=== PATIENT | female | born 1955 | race Caucasian/White ===

== ENCOUNTER → 2017-07-29 | Outpatient (CLI) | payer MEDICARE ==
--- NOTE | 2017-07-29 08:07 | US ---
EXAMINATION TYPE: US abdomen complete DATE OF EXAM: 07/29/2017 COMPARISON: None CLINICAL HISTORY: R94.5 Abnormal results of liver function studies. Abnormal labs. No pain. Ileosto my bag. Patient states having a history of gall stones with removal of stones, but doesn't remember if gall bladder was removed EXAM MEASUREMENTS: Liver Length: 16.0 cm CBD: 0.6 cm CHD: 0.5 cm Spleen: 9.7 cm Right Kidney: 8.7 x 4.3 x 2.9 cm Left Kidney: 9.1 x 3.9 x 3.6 cm Pancreas: wnl Liver: wnl Gallbladder: Not seen Evidence for sonographic Gomez's sign: neg CBD: wnl CHD: wnl Spleen: wnl Right Kidney: wnl Left Kidney: Lateral cystic appearing lesion seen, mid/lower pole = 1.8 x 1.4 x 1.4 cm Upper IVC: wnl Abd Aorta: no AAA seen The visualized liver is homogenous. The intrahepatic portion of the IVC and visualized abdominal aor ta are within normal limits. Gallbladder is not visualized and presumed surgically absent. Common bi le duct is unremarkable. The visualized portions of the pancreas are homogenous. The spleen is unre markable. Kidneys are symmetric and free of hydronephrosis. No suspicious renal lesions are seen. T echnologist cid elongated 1.8 cm oval anechoic lesion with increased through transmission felt to r eflect simple cyst upper to mid pole level left kidney. IMPRESSION: No worrisome intrahepatic mass or intrahepatic ductal dilatation is seen.
== END | disposition home or self-care (01) ==
LOC: RADUSWWP 06:52
PROVIDERS: ATTEND Internal Medicine
DX: R94.5 Abnormal results of liver function studies (principal)
CPT/HCPCS: 76700

== ENCOUNTER → 2017-09-14 | Outpatient (CLI) | payer MEDICARE ==
--- NOTE | 2017-09-14 14:55 | XR ---
EXAMINATION TYPE: XR chest 2V DATE OF EXAM: 09/14/2017 COMPARISON: 09/07/2015 TECHNIQUE: PA and lateral views submitted. HISTORY: Chronic cough FINDINGS: The lungs are clear and there is no pneumothorax, pleural effusion, or focal pneumonia. Hyperinflat ion suggests COPD. Degenerative change of the spine. No overt failure. IMPRESSION: 1. No acute process. Correlate for COPD.
== END | disposition home or self-care (01) ==
LOC: RADXRMAIN 14:20
PROVIDERS: ATTEND Internal Medicine
DX: J20.9 Acute bronchitis, unspecified (principal)
CPT/HCPCS: 71046

== ENCOUNTER → 2017-09-24 | Outpatient (CLI) | payer MEDICARE ==
--- NOTE | 2017-09-24 14:21 | CT ---
EXAMINATION TYPE: CT chest wo con DATE OF EXAM: 09/24/2017 COMPARISON: NONE HISTORY: COPD with Acute Exacerbation CT DLP: 211.1 mGycm High-resolution noncontrast CT of the chest was performed with the patient in the prone and supine po sitions. Lung and mediastinal window settings are submitted. The lungs appear to be well-aerated. I do not see evidence for fibrotic change. There is no eviden ce for bronchiectasis, groundglass infiltrate or fibrosis. Pleural-based nodule left posterior sulcus measures 5.9 mm. No additional nodules identified with certainty. Hyperinflation compatible with BRIGADIER D. No pleural effusion is identified. I do not see evidence for hilar or mediastinal mass or adenopa thy. IMPRESSION: 1. COPD. 2. Pulmonary nodule left lower lobe. Follow-up in 3 months is advised.
== END | disposition home or self-care (01) ==
LOC: RADCTMAIN 13:38
PROVIDERS: ATTEND Family Medicine
DX: J44.1 Chronic obstructive pulmonary disease with (acute) exacerbation (principal); R91.1 Solitary pulmonary nodule
CPT/HCPCS: 71250

== ENCOUNTER → 2017-10-05 | Outpatient (CLI) | payer MEDICARE ==
--- NOTE | 2017-10-06 18:32 | ECHOF ---
Referral Reason:I50.31 Acute Diastolic (Congestive) Heart Failure MEASUREMENTS -------- HEIGHT: 154.9 cm WEIGHT: 47.2 kg BP: 116/73 RVIDd: 2.7 cm (< 3.3) IVSd: 1.0 cm (0.6 - 1.1) LVIDd: 3.7 cm (3.9 - 5.3) LVPWd: 1.0 cm (0.6 - 1.1) IVSs: 1.1 cm LVIDs: 2.9 cm LVPWs: 1.4 cm LA Diam: 2.3 cm (2.7 - 3.8) LAESV Index (A-L): 8.49 ml/m Ao Diam: 2.6 cm (2.0 - 3.7) AV Cusp: 1.7 cm (1.5 - 2.6) MV EXCURSION: 16.638 mm (> 18.000) MV EF SLOPE: 93 mm/s (70 - 150) EPSS: 0.6 cm MV E Nilay: 0.58 m/s MV DecT: 339 ms MV A Nilay: 0.76 m/s MV E/A Ratio: 0.77 FINDINGS -------- Sinus rhythm. This was a technically adequate study. The left ventricular size is normal. Left ventricular wall thickness is normal. Overall left vent ricular systolic function is normal with, an EF between 55 - 60 %. The right ventricle is normal in size. Normal LA size by volume 22+/-6 ml/m2. The right atrium is normal in size. The aortic valve is trileaflet and appears structurally normal. The mitral valve is normal. No regurgitation noted There is no pulmonic regurgitation present. The aortic root size is normal. Normal inferior vena cava with normal inspiratory collapse consistent with estimated right atrial pre ssure of 5 mmHg. There is no pericardial effusion. CONCLUSIONS -------- 1. Sinus rhythm. 2. This was a technically adequate study. 3. The left ventricular size is normal. 4. Left ventricular wall thickness is normal. 5. Overall left ventricular systolic function is normal with, an EF between 55 - 60 %. 6. The right ventricle is normal in size. 7. Normal LA size by volume 22+/-6 ml/m2. 8. The right atrium is normal in size. 9. The aortic valve is trileaflet and appears structurally normal. 10. The mitral valve is normal. 11. No regurgitation noted 12. There is no pulmonic regurgitation present. 13. The aortic root size is normal. 14. Normal inferior vena cava with normal inspiratory collapse consistent with estimated right atrial pressure of 5 mmHg. 15. There is no pericardial effusion. JEWELRY MECHANIC: Lynnette Cedillo RDCS
== END | disposition home or self-care (01) ==
LOC: RADECHMAIN 15:31
PROVIDERS: ATTEND Family Medicine
DX: I50.31 Acute diastolic (congestive) heart failure (principal)
CPT/HCPCS: 93306

== ENCOUNTER → 2017-10-22 | Outpatient (CLI) | payer MEDICARE ==
--- NOTE | 2017-10-23 10:16 | FL ---
EXAMINATION: Cervical and Thoracic Esophagram DATE OF EXAM: 10/22/2017 CLINICAL INDICATION: 61-year-old female with dysphagia, sensation of food and liquids getting stuck a t the upper to mid sternal level for the past year. Patient with history of Crohn's and prior colecto my and ileostomy. COMPARISON: None Total Fluoroscopy Time: 1 minute 27 seconds Total images: 32 FINDINGS: The swallowing mechanism is normal. There is thickening of the cricopharyngeus muscle impressing on t he upper cervical esophagus at the C5 level. Otherwise, cervical and thoracic portions have a normal course and caliber. Moderate tertiary perista ltic contractions are demonstrated with blunted secondary stripping waves. This results in prolonged pooling of contrast in the esophagus when the patient is prone or supine. The mucosa is normal and no persistent filling defect is encountered. No hiatal hernia is present. Gastroesophageal reflux could not be elicited with Valsalva or positiona l maneuvers. IMPRESSION: 1. Hypertrophy versus spasm of the cricopharyngeus muscle along the upper cervical esophagus. 2. Blunted secondary stripping waves and moderate tertiary peristalsis allowing for prolonged pooling of contrast in the esophagus when the patient is prone or supine. Findings suggest early presbyesoph jolanta. 3. No stricture, mucosal lesion, or hiatal hernia.
== END | disposition home or self-care (01) ==
LOC: RADFLMAIN 10:55
PROVIDERS: ATTEND Internal Medicine
DX: R13.10 Dysphagia, unspecified (principal)
CPT/HCPCS: 74220

== ENCOUNTER → 2018-02-23 | Outpatient (CLI) | payer MEDICARE ==
--- NOTE | 2018-02-23 17:14 | BD ---
EXAMINATION TYPE: Axial Bone Density DATE OF EXAM: 02/23/2018 COMPARISON: NONE CLINICAL HISTORY: 62 YR OLD FEMALE.....ICD-10 CODE: Z13.820 SCREENING FOR OSTEOPOROSIS Height: 60.5 Weight: 110 FRAX RISK QUESTIONS: Glucocorticoids (More than 3mos): YES, FOR COPD (Ex: prednisone, prednisolone, methylprednisolone, dexamethasone, and hydrocortisone). History of Fracture in Adulthood: YES Secondary Osteoporosis: YES 2. Hyperthyroidism: YES, BUT IT HAS BEEN KILLED OFF Current Tobacco Use: YES RISK FACTORS HISTORY OF: History of Wrist Fracture: LT WRIST < 50 YRS OLD Family History of Osteoporosis: YES, HER MOTHER Active: YES Diet low in dairy products/other sources of calcium: YES, A LITTLE LOW Postmenopausal woman: YES, AT AGE 55 MEDICATIONS: Prednisone or other steroids: YES, FOR COPD, INHALERS How Long: ON AND OFF Thyroid Medications: YES, SYNTHROID How Lon YRS Additional Medications: CLONOPIN, REFLUX MEDS, CALCIUM WITH D, Additional History: COPD, ARTHRITIS EXAM MEASUREMENTS: Bone mineral densitometry was performed using the [employer] System. Bone mineral density as measured about the Lumbar spine is: ----- L1-L4(G/cm2): 0.859 T Score Values are as follows: ----- L1: -3.1 ----- L2: -3.1 ----- L3: -2.5 ----- L4: -2.3 ----- L1-L4: -2.7 Bone mineral density FIRST BONE DENSITY AT [facility] Bone mineral density about the R hip (g/cm2): 0.723 Bone mineral density about the L hip (g/cm2): 0.680 T Score values are as follows: -----R Neck: -2.2 -----L Neck: -2.4 -----R Total: -2.3 -----L Total: -2.6 Bone mineral density FIRST BONE DENSITY AT [facility] FRAX%s: THERE IS A 18.7% CHANCE OF A MAJOR OSTEOPOROTIC FX AND A 5.8% FOR HIP FX.....PROBABILITY OF FX IN 10 YRS TIME IMPRESSION: Osteoporosis (T Score less than -2.5). There is increased fracture risk and therapy is usually indicated based on age. Re-Screen 1-2 years. NOTE: T-SCORE=SD OF THE YOUNG ADULT MEAN.
== END | disposition home or self-care (01) ==
LOC: RADBDWWP 09:17
PROVIDERS: ATTEND Obstetrics & Gynecology
DX: M81.0 Age-related osteoporosis without current pathological fracture (principal)
CPT/HCPCS: 77080

== ENCOUNTER → 2018-03-03 | Outpatient (CLI) | payer MEDICARE ==
--- NOTE | 2018-03-03 12:51 | CT ---
EXAMINATION TYPE: CT chest w con DATE OF EXAM: 03/03/2018 COMPARISON: Chest CT September 24, 2017 HISTORY: Lung nodule CT DLP: 322 mGycm. Automated Exposure Control for Dose Reduction was Utilized. TECHNIQUE: CT scan of the thorax is performed following with IV Contrast, patient injected with 100 mL of Isovue 300. FINDINGS: LUNGS: There is redemonstration of linear scarring posteriorly in the left lung base extending latera lly without discrete nodule. Prior exam was performed under high resolution protocol making evaluatio n for subcentimeter nodularity suboptimal. Some dependent atelectasis in the right lung base medially is present. There is no suspicious greater than 4 mm parenchymal nodule or mass identified bilateral ly. There is mild right apical bleb formation noted. No suspicious consolidation or groundglass opaci ty is seen. No pleural effusion or pneumothorax is noted. MEDIASTINUM: There are no greater than 1 cm hilar or mediastinal lymph nodes. No cardiomegaly or pe ricardial effusion is seen. Coronary artery calcification is present which is noted marker for greenwood ry artery disease. OTHER: Cholecystectomy clips are identified. There is simple appearing 1.6 cm cyst laterally mid pole level left kidney axial image 68. Mild multilevel spurring in thoracic spine is present. IMPRESSION: No suspicious nodules or masses. No acute pulmonary process is evident.
== END | disposition home or self-care (01) ==
LOC: RADCTMAIN 02-24 15:31
PROVIDERS: ATTEND Internal Medicine Critical Care Medicine
DX: R91.1 Solitary pulmonary nodule (principal)
CPT/HCPCS: 71260; Q9967

== ENCOUNTER → 2019-07-01 | Outpatient (CLI) | payer MEDICARE ==
--- NOTE | 2019-07-05 07:51 | MM ---
Reason for exam: screening (asymptomatic). Last mammogram was performed 2 years and 9 months ago. History: Patient is postmenopausal and is nulliparous. Physical Findings: A clinical breast exam by your physician is recommended on an annual basis and results should be correlated with mammographic findings. MG 3D Screening Mammo W/Cad Bilateral CC and MLO view(s) were taken. Prior study comparison: October 14, 2016, mammogram. October 06, 2016, mammogram. August 09, 2015, mammogram. The breast tissue is heterogeneously dense. This may lower the sensitivity of mammography. No significant changes when compared with prior studies. ASSESSMENT: Benign, BI-RAD 2 RECOMMENDATION: Routine screening mammogram of both breasts in 1 year.
== END | disposition home or self-care (01) ==
LOC: RADMAMWWP 15:02
PROVIDERS: ATTEND Obstetrics & Gynecology
DX: Z12.31 Encounter for screening mammogram for malignant neoplasm of breast (principal)
CPT/HCPCS: 77063; 77067

== ENCOUNTER → 2020-04-25 | Outpatient (CLI) | payer MEDICARE ==
[2020-04-25 16:13] LABS: HCT 47.4 % (34.0-46.0); MCH 31.2 pg (25.0-35.0); MCHC 31.7 g/dL (31.0-37.0); MCV 98.3 fL (80.0-100.0); Mean Platelet Volume 6.8; Platelet Count 266 k/uL (150-450); RBC 4.82 m/uL (3.80-5.40); RDW 12.5 % (11.5-15.5); WBC 12.5 k/uL (3.8-10.6)
[2020-04-25 16:59] LABS: Appearance,Urine Clear (Clear); Bacteria,Urine Rare /hpf; Bilirubin,Urine Negative (Negative); Blood,Urine Trace (Negative); Color,Urine Colorless; Glucose,Urine (UA) Negative (Negative); Ketones,Urine Negative (Negative); Leukocyte Esterase,Urine Negative (Negative); Mucus,Urine Rare /hpf; Nitrite,Urine Negative (Negative); Protein,Urine Negative (Negative); RBC,Urine <1 /hpf (0-5); Specific Gravity,Urine 1.003 (1.001-1.035); Urobilinogen,Urine <2.0 mg/dL (<2.0); WBC,Urine <1 /hpf (0-5)
[2020-04-26 02:21] LABS: Erythrocyte Sedimentation Rate 27 mm/Hr (0-30)
--- NOTE | 2020-04-26 09:25 | XR ---
EXAMINATION TYPE: XR chest 2V DATE OF EXAM: 04/25/2020 COMPARISON: 09/14/2017 TECHNIQUE: PA and lateral views submitted. HISTORY: COPD FINDINGS: The lungs are clear and there is no pneumothorax, pleural effusion, or focal pneumonia. Hyperinflat ion compatible COPD. Heart size normal. No overt failure. Hypertrophic and degenerative changes of th e spine. IMPRESSION: 1. No acute process. COPD.
== END | disposition home or self-care (01) ==
LOC: LABWHC1 15:18
PROVIDERS: ATTEND Internal Medicine
DX: J44.9 Chronic obstructive pulmonary disease, unspecified (principal); D72.829 Elevated white blood cell count, unspecified
CPT/HCPCS: 36415; 71046; 81001; 85027; 85652

== ENCOUNTER → 2020-09-10 | Outpatient (CLI) | payer MEDICARE ==
--- NOTE | 2020-09-10 17:09 | BD ---
EXAMINATION TYPE: Axial Bone Density DATE OF EXAM: 09/10/2020 COMPARISON: 02/23/2018 CLINICAL HISTORY: Postmenopausal screening Height: 5 FT 1 IN Weight: 114 FRAX RISK QUESTIONS: Alcohol (3 or more units per day): NO Family History (Parent hip fracture): NO Glucocorticoids (More than 3mos): LONG AGO NONE FOR A LONG TIME (Ex: prednisone, prednisolone, methylprednisolone, dexamethasone, and hydrocortisone). History of Fracture in Adulthood: YES Secondary Osteoporosis: 1. Type 1 Diabetes: NO 2. Hyperthyroidism: NO 3. Menopause before 45: BECAUSE OF HYPERTHYROIDISM 4. Malnutrition: NO 5. Chronic liver disease: NO Rheumatoid Arthritis: NO Current Tobacco Use: YES RISK FACTORS HISTORY OF: History of Wrist Fracture: LEFT WRIST When: 30 YEARS AGO Surgery to Spine/Hip(right/left)/Wrist (right/left): RT WRIST NERVE When: 2019 Family History of Osteoporosis: YES Active: YES Diet low in dairy products/other sources of calcium: NO Postmenopausal woman: AGE 56 Take estrogen and/or progesterone medications: NONE Lost more than 2 inches in height since high school: NO MEDICATIONS: Thyroid Medications: YES Which medication: SYNTHROID How Long: APPROX 25 YEARS Additional Medications: SYNTHROID, REGLANE, EVISTA,CODEINE SULFATE,PEPCID, Additional History: EXAM MEASUREMENTS: Bone mineral densitometry was performed using the [employer] System. Bone mineral density as measured about the Lumbar spine is: ----- L1-L4(G/cm2): 0.824 T Score Values are as follows: ----- L2: -3.4 ----- L3: -3.0 ----- L4: -2.4 ----- L1-L4: -3.0 Bone mineral density has: DECREASED -4.4 % since study of: 2017 Bone mineral density about the R hip (g/cm2): 0.727 Bone mineral density about the L hip (g/cm2): 0.697 T Score values are as follows: -----R Neck: -2.2 -----L Neck: -2.5 -----R Total: -2.3 -----L Total: -2.6 Bone mineral density has: DECREASED -0.6 % since study of: 2017 IMPRESSION: Osteoporosis (T Score less than -2.5). There is increased fracture risk and therapy is usually indicated based on age. Re-Screen 1-2 years. NOTE: T-SCORE=SD OF THE YOUNG ADULT MEAN.
--- NOTE | 2020-09-12 08:47 | MM ---
Reason for exam: screening (asymptomatic). Last mammogram was performed 1 year and 2 months ago. History: Patient is postmenopausal and is nulliparous. Physical Findings: A clinical breast exam by your physician is recommended on an annual basis and results should be correlated with mammographic findings. MG 3D Screening Mammo W/Cad Bilateral CC and MLO view(s) were taken. Prior study comparison: July 01, 2019, bilateral MG 3d screening mammo w/cad. There are scattered fibroglandular densities. No significant changes when compared with prior studies. ASSESSMENT: Benign, BI-RAD 2 RECOMMENDATION: Routine screening mammogram of both breasts in 1 year.
== END | disposition home or self-care (01) ==
LOC: RADMAMWWP 15:18
PROVIDERS: ATTEND Obstetrics & Gynecology
DX: Z12.31 Encounter for screening mammogram for malignant neoplasm of breast (principal); M81.0 Age-related osteoporosis without current pathological fracture
CPT/HCPCS: 77063; 77067; 77080

== ENCOUNTER → 2020-11-23 | Outpatient (CLI) | payer MEDICARE ==
[~2020-11-23] MED LIST: DENOSUMAB 60 MG/ML 1 ML SYRINGE SQ NR
[2020-11-23 14:17] VITALS: BP 106/74; PULSE 98; RESP 16; TEMP 98.1
== END ==
LOC: PROCWHC3 13:56
PROVIDERS: ATTEND Internal Medicine
DX: M81.0 Age-related osteoporosis without current pathological fracture (principal)
CPT/HCPCS: 96372; J0897

== ENCOUNTER 2020-12-23 18:24 | Emergency (ER) | payer MEDICARE ==
[2020-12-23] MEDS ORDERED: DIPH,PERTUS(ACELL)TETVAC-LF 0.5 ML VIAL IM ONE (18:55)
[2020-12-23] MEDS ORDERED: LIDOCAINE 1% INJ 10MG/ML (20 ML MDV) SQ ONE (18:55)
[2020-12-23 19:01] VITALS: BP 135/76; PULSE 89; RESP 18; TEMP 98.2
--- NOTE | 2020-12-23 19:01 | ED ---
General Adult HPI - General Chief complaint: Wound/Laceration Stated complaint: Fall/chin lac/6 hrs ago Time Seen by Provider: 12/23/20 18:38 Source: patient, RN notes reviewed Mode of arrival: ambulatory Limitations: no limitations - History of Present Illness Initial comments: 65-year-old female with a past medical history of GERD, Crohn's currently not on immunosuppressants presents for laceration of the chin. Patient reports she was walking her driveway. She reports there is slight elevation to the sidewalk and she tripped and fell hitting her chin on the ground. This happened about 7 hours prior to arrival. Patient states she couldn't get it to stop bleeding so presented to the emergency room. Patient states she cannot see how deep it is. She is not up-to-date on tetanus. Patient denies headache or any other injuries. Denies loss of consciousness. Denies blood thinners.Patient has no other complaints at this time including shortness of breath, chest pain, abdominal pain, nausea or vomiting, headache, or visual changes. - Related Data Home Medications Medication Instructions Recorded Confirmed Biotin 5 mg PO DAILY 09/03/15 11/23/20 Calcium Carbonate/Vitamin D3 1 tab PO DAILY 09/03/15 11/23/20 [Calcium 600-Vit D3 400 Tablet] Codeine Sulfate 60 mg PO BID PRN 09/03/15 11/23/20 Cyanocobalamin [Vitamin B-12 1,000 mcg SQ TU 09/03/15 11/23/20 Injection] Estradiol/Norethindrone Acet 1 tab PO DAILY 09/03/15 11/23/20 [Lopreeza 1 mg-0.5 mg Tablet] Levothyroxine Sodium [Synthroid] 112 mcg PO DAILY 09/03/15 11/23/20 Ondansetron [Zofran] 4 mg PO Q12HR PRN 09/03/15 11/23/20 Vitamin E (Dl,Tocopheryl Acet) 400 unit PO DAILY 09/03/15 11/23/20 [Vitamin E] Previous Rx's Medication Instructions Recorded Ranitidine HCl [Zantac] 150 mg PO BID #60 tab 09/06/15 Glucerna 1.2 Shiv 237 ml PO ACHS #18 can 09/07/15 Glucerna Shake 1 can PO BID-W/MEALS #18 can 09/07/15 Allergies Allergy/AdvReac Type Severity Reaction Status Date / Time Penicillins Allergy Unknown Verified 11/23/20 14:06 povidone-iodine Allergy Unknown Verified 11/23/20 14:06 [From Betadine] soap [From Betadine] Allergy Unknown Verified 11/23/20 14:06 Review of Systems ROS Statement: Those systems with pertinent positive or pertinent negative responses have been documented in the HPI. ROS Other: All systems not noted in ROS Statement are negative. Past Medical History Past Medical History: GERD/Reflux, Osteoarthritis (OA), Thyroid Disorder Additional Past Medical History / Comment(s): 09-03-15 LEUKOCYTOSIS,ABD PAIN, N/V,ARF,HEPATITIS. 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 History of Any Multi-Drug Resistant Organisms: None Reported Past Surgical History: Bowel Resection, Tonsillectomy Additional Past Surgical History / Comment(s): SEVERAL ileostomy SX, RECTUM REMOVED/AREA SUTURED/CLOSED, 2 NASL SX POLY REMOVED(BENIGN) AND DEVIATED SEPTUM REPAIRED. ILEOSTOMY LEFT SIDE. Additional Past Anesthesia/Blood Transfusion Reaction / Comment(s): WITH TONSIL SX WOKE EARLY DURING SX AND AFTER ANOTHER SX WHERE SHE HAD A SPINAL HAD SOME REACTION TO IT Past Psychological History: No Psychological Hx Reported Smoking Status: Current every day smoker Past Alcohol Use History: None Reported Past Drug Use History: None Reported - Past Family History Father Family Medical History: Myocardial Infarction (OR) Additional Family Medical History / Comment(s): FATHER AHD OR AT AGE 51, HAD AIDC, DADS BROTHER AGE 50 FROM OR,AND ONE OF PTS COUSINS AGE 40 FROM [place] Mother Family Medical History: Cancer, Osteoarthritis (OA), Rheumatoid Arthritis (RA) Additional Family Medical History / Comment(s): BONE CANCER General Exam Limitations: no limitations General appearance: alert, in no apparent distress Head exam: Present: atraumatic, normocephalic, normal inspection Eye exam: Present: normal appearance, PERRL, EOMI. Absent: scleral icterus, conjunctival injection, periorbital swelling ENT exam: Present: normal exam, normal oropharynx, mucous membranes moist, other (Patient has a 2 cm laceration noted to the vertex of the chin) Neck exam: Present: normal inspection, full ROM. Absent: tenderness, meningismus, lymphadenopathy Respiratory exam: Present: normal lung sounds bilaterally. Absent: respiratory distress, wheezes, rales, rhonchi, stridor Cardiovascular Exam: Present: regular rate, normal rhythm, normal heart sounds. Absent: systolic murmur, diastolic murmur, rubs, gallop, clicks GI/Abdominal exam: Present: soft, normal bowel sounds. Absent: distended, tenderness, guarding, rebound, rigid Course Vital Signs 12/23/20 12/23/20 18:29 19:00 Temperature 97.7 F 98.2 F Pulse Rate 91 89 Respiratory 16 18 Rate Blood Pressure 107/61 135/76 O2 Sat by Pulse 99 95 Oximetry Procedures - Laceration Laceration #1 Consent Obtained: verbal consent Indication: laceration Site: face Size (cm): 1 Description: linear Depth: simple, single layer Anesthetic Used: lidocaine 1% Anesthesia Technique: local infiltration Amount (mls): 2 Pre-repair: wound explored, irrigated extensively Type of Sutures: nylon Size of Sutures: 5-0 Number of Sutures: 2 Technique: simple, interrupted Patient Tolerated Procedure: well, no complications Medical Decision Making - Medical Decision Making Laceration repaired. Patient will be discharged home to follow up with primary care. She'll return here for any worsening symptoms. Discussed care parameters and return precautions. Disposition Clinical Impression: Laceration Disposition: HOME SELF-CARE Condition: Good Instructions (If sedation given, give patient instructions): Care For Your Stitches (ED), Laceration (ED) Additional Instructions: Keep area clean with gentle soap and water. Apply antibiotic ointment twice daily. Please follow up with primary care in 1-2 days. Return to the ER for any worsening symptoms. Return in 5 days for suture removal. Is patient prescribed a controlled substance at d/c from ED?: No Referrals: Medina Booth MD [Primary Care Provider] - 1-2 days Time of Disposition: 19:15
== END 2020-12-23 19:32 | disposition home or self-care (01) ==
LOC: EC 18:24
DX: S01.81XA Laceration without foreign body of other part of head, initial encounter (principal); M19.90 Unspecified osteoarthritis, unspecified site; F17.200 Nicotine dependence, unspecified, uncomplicated; E07.9 Disorder of thyroid, unspecified; Z90.09 Acquired absence of other part of head and neck; W01.0XXA Fall on same level from slipping, tripping and stumbling without subsequent striking against object, initial encounter; Y93.01 Activity, walking, marching and hiking; Z23 Encounter for immunization
CPT/HCPCS: 90715; 99283; 12011; 90471; 96372; J2001

== ENCOUNTER → 2021-12-16 | Outpatient (CLI) | payer MEDICARE ==
[2021-12-16 11:33] VITALS: BP 119/79; PULSE 98; RESP 15; TEMP 97.4
== END ==
LOC: PROCWHC3 10:57
PROVIDERS: ATTEND Internal Medicine
DX: M81.0 Age-related osteoporosis without current pathological fracture (principal); Z88.0 Allergy status to penicillin; Z88.8 Allergy status to other drugs, medicaments and biological substances; F17.200 Nicotine dependence, unspecified, uncomplicated
CPT/HCPCS: 96372; J0897

== ENCOUNTER → 2022-01-23 | Outpatient (CLI) | payer MEDICARE ==
--- NOTE | 2022-01-24 19:52 | CTL ---
EXAMINATION TYPE: CT Low Dose Lung DATE OF EXAM ORDERED: 01/23/2022 HISTORY: History Nicotine dependence. Lung cancer screening CT DLP: 46.[address] CTDI: 1.2 mGy Automated exposure control for dose reduction was used. SCREENING VISIT: Baseline COMPARISON: CT dated 03/03/2018 TECHNIQUE: Low dose computed tomography scan was performed through the chest at 1 mm thick sections a nd reconstructed images in multiple planes at 1 mm and [address] DIAGNOSTIC QUALITY: Satisfactory FINDINGS: LUNG NODULES: None. LUNGS: COPD: Severity: Mild Fibrosis: Severity: None Lymph nodes: No pathologically enlarged lymph nodes. Other findings: Left basal linear pulmonary atelectasis. Scattered segments of bronchial impaction ma inly in the lower lobes. RIGHT PLEURAL SPACE: Effusion: None Calcification: None Thickening: None Pneumothorax: None LEFT PLEURAL SPACE: Effusion: None Calcification: None Thickening: None Pneumothorax: None HEART: Heart Size: Normal Coronary Calcification: Moderate Pericardial Effusion: None OTHER FINDINGS: Upper abdomen: None Bony thorax: No gross aggressive bone lesion. Supraclavicular region: None Other: Minimal arterial atherosclerotic calcifications. IMPRESSION: No definite lung nodule or suspicious lesion. COPD changes. Other findings as described francine harrison. CT LUNG RAD AND CT CHEST RECOMMENDATION: Lung-Rad 1 Negative: Continue annual screening with LDCT in 12 months. S Modifier (other clinically significant findings): None
== END | disposition home or self-care (01) ==
LOC: RADCTMAIN 11:54
PROVIDERS: ATTEND Internal Medicine
DX: Z12.2 Encounter for screening for malignant neoplasm of respiratory organs (principal); Z87.891 Personal history of nicotine dependence
CPT/HCPCS: 71271

== ENCOUNTER → 2022-04-02 | Outpatient (CLI) | payer MEDICARE ==
--- NOTE | 2022-04-02 10:36 | CA ---
Exercise Stress Test Report Name: Porsche Padilla Exam Date: 04/02/2022 09:43 Exam Location: [facility] Stress Ht (in): 61 Wt (lb): 99 BSA: 1.40 Ordering Phys: Medina Reyes MD Referring Phys: MEDINA REYES,, Technologist: Arya Jiménez Age: 66 Gender: F : 1955 Procedure CPT: Indications: I25.10 ATHSCL HEART DISEASE OF [place] CORONARY ART ICD-10 Codes: Patient History: Medications: SEE LIST Meds past 24 hrs: Pretest Chest Pain: STRESS TEST Ish Protocol Exercise Duration (min:sec): 08:[address] Depressions (mm): Angina Score: Shah Score: Resting HR (bpm): 106 Peak HR (bpm): 165 Resting BP (mmHg): 107 / 80 Peak BP (mmHg): 162 / 92 MPHR: 156 Target HR: 133 % MPHR: 106 METS: 10.3 Total Dose: Peak Dose: Atropine: Double Product: 04710 BP Response: Stress Termination: Reached target heart rate Stress Symptoms: NO SYMPTOMS Stress Summary: ECG ANALYSIS Resting ECG: Stress ECG: CONCLUSIONS Baseline EKG revealed normal sinus rhythm without significant ST-T changes. Patient walked on a standard Ish protocol for 8 minutes and achieved a maximum heart rate of 165 bpm which is available 85% of predicted maximal. He delivered fatigue and shortness of breath. He did not have any angina or arrhythmia. EKG did not reveal any ST segment changes to indicate ischemia. By EKG criteria is a negative stress test with fair x-rays capacity. The nuclear scan results which are more pertinent report by the radiologist Dr. David Arana MD (Electronically Signed) Final Date: 02 April 2022 10:35
--- NOTE | 2022-04-04 11:23 | NM ---
EXAMINATION TYPE: NM stress cardiolite complete DATE OF EXAM: 04/02/2022 COMPARISON: NONE HISTORY: I25.10 ATHSCL HEART DISEASE OF [place] CORONARY ART TECHNIQUE: After the intravenous administration of 9 mCi Tc 99m Sestamibi - Rest images obtained 10 minutes post injection. The patient exercised using a ROCCO protocol and 1 minute prior to peak exe rcise was injected with 24.1 mCi Tc 99m Sestamibi - Stress images obtained 45 minutes post injection. FINDINGS: Targeted heart rate was achieved during performance of the study. Review of stress and rest SPECT ekaterina ges demonstrates no distinct perfusion abnormality. Gated analysis shows normal wall motion with an estimated left ventricular ejection fraction of 80 %. IMPRESSION: No scintigraphic evidence for reversible ischemia
== END | disposition home or self-care (01) ==
LOC: RADNMMAIN 08:01
PROVIDERS: ATTEND Internal Medicine
DX: I25.10 Atherosclerotic heart disease of native coronary artery without angina pectoris (principal)
CPT/HCPCS: 93017; 78452; A9500

== ENCOUNTER → 2022-05-16 | Outpatient (CLI) | payer MEDICARE ==
--- NOTE | 2022-05-19 08:28 | MM ---
Reason for Exam: Screening (asymptomatic). Last mammogram was performed 1 year(s) and 8 month(s) ago. Patient History: Menarche at age 17. Patient has no children. Postmenopausal. Risk Values: Senait 5 year model risk: 1.6%. NCI Lifetime model risk: 6.6%. Prior Study Comparison: 10/14/2016 Screening Mammogram, Unknown. 07/01/2019 Bilateral Screening Mammogram, [facility]. 09/10/2020 Bilateral Screening Mammogram, [facility]. Tissue Density: The breast tissue is heterogeneously dense. This may lower the sensitivity of mammography. Findings: Analyzed By CAD. There is no suspicious group of microcalcifications or new suspicious mass in either breast. Overall Assessment: Benign, BI-RAD 2 Management: Screening Mammogram of both breasts in 1 year. A clinical breast exam by your physician is recommended on an annual basis and results should be correlated with mammographic findings. Electronically signed and approved by: Lukasz Snider M.D. Radiologis
== END | disposition home or self-care (01) ==
LOC: RADMAMWWP 14:58
PROVIDERS: ATTEND Obstetrics & Gynecology
DX: Z12.31 Encounter for screening mammogram for malignant neoplasm of breast (principal); Z78.0 Asymptomatic menopausal state
CPT/HCPCS: 77063; 77067

== ENCOUNTER → 2022-06-24 | Outpatient (CLI) | payer MEDICARE ==
[2022-06-24 11:23] VITALS: BP 111/73; PULSE 101; RESP 16; TEMP 98.3
== END ==
LOC: PROCWHC3 11:00
PROVIDERS: ATTEND Internal Medicine
DX: M81.0 Age-related osteoporosis without current pathological fracture (principal); Z88.0 Allergy status to penicillin; Z91.041 Radiographic dye allergy status; Z91.048 Other nonmedicinal substance allergy status; F17.200 Nicotine dependence, unspecified, uncomplicated
CPT/HCPCS: 96372; J0897

== ENCOUNTER 2022-08-08 15:09 | Emergency (ER) | payer MEDICARE ==
[2022-08-08] MEDS ORDERED: DEXAMETHASONE SOD PHOSPHATE 10 MG/ML 1 ML VIAL IVP STA (15:46)
[2022-08-08] MEDS ORDERED: SODIUM CHLORIDE 0.9% 1,000 ML IV STA (15:46)
[2022-08-08] MEDS ORDERED: MORPHINE SULFATE 4 MG/ML SYRINGE IVP STA (15:47)
[2022-08-08] MEDS ORDERED: LEVOFLOXACIN 750MG-D5W PMX 750 MG in DEXTROSE/WATER 1 150ML.BAG IVPB STA (15:50)
--- NOTE | 2022-08-08 15:58 | ED ---
General Adult HPI - General Chief complaint: Dental/Oral Stated complaint: Mouth infection Time Seen by Provider: 08/08/22 15:35 Source: patient, RN notes reviewed, old records reviewed Mode of arrival: ambulatory Limitations: no limitations - History of Present Illness Initial comments: Patient is a 66-year-old female who presents emergency Department complaining of right-sided dental pain. Recently had a root canal as well as a crown placed the right upper tooth. Has been dealing with pain in the right cheek and right upper tooth for a month. Procedure was approximately one month ago. Called her dentist, who instructed her to come to the emergency department and she has noticed worsening swelling over the right cheek and last few days. Denies any fevers. Denies any difficulty with vision on the right eye. Denies any difficulty with eye movements. Denies any difficulty swallowing or breathing. Denies any tongue swelling or for the mild swelling. Denies any sensation of voice change or throat swelling. Denies any other symptoms including fevers, chest pain, shortness of breath. Does endorse any ear fullness sensation on the right side. Denies any ear pain or skull Pain. Has no other acute complaints at this time. Has been on clindamycin, however patient's dentist request that she come in for a dose of IV antibiotics and for further evaluation of this time. - Related Data Home Medications Medication Instructions Recorded Confirmed Biotin 5 mg PO DAILY 09/03/15 06/24/22 Calcium Carbonate/Vitamin D3 1 tab PO DAILY 09/03/15 06/24/22 [Calcium 600-Vit D3 400 Tablet] Codeine Sulfate 60 mg PO BID PRN 09/03/15 06/24/22 Cyanocobalamin [Vitamin B-12 1,000 mcg SQ TU 09/03/15 06/24/22 Injection] Estradiol/Norethindrone Acet 1 tab PO DAILY 09/03/15 06/24/22 [Lopreeza 1 mg-0.5 mg Tablet] Levothyroxine Sodium [Synthroid] 112 mcg PO DAILY 09/03/15 06/24/22 Ondansetron [Zofran] 4 mg PO Q12HR PRN 09/03/15 06/24/22 Vitamin E (Dl,Tocopheryl Acet) 400 unit PO DAILY 09/03/15 06/24/22 [Vitamin E (400 Iu = 180 mg)] Previous Rx's Medication Instructions Recorded Ranitidine HCl [Zantac] 150 mg PO BID #60 tab 09/06/15 Glucerna 1.2 Shiv 237 ml PO ACHS #18 can 09/07/15 Glucerna Shake 1 can PO BID-W/MEALS #18 can 09/07/15 Levofloxacin [Levaquin] 750 mg PO DAILY 7 Days #7 tab 08/08/22 dexAMETHasone [Decadron] 4 mg PO DAILY 3 Days #3 tablet 08/08/22 Allergies Allergy/AdvReac Type Severity Reaction Status Date / Time Penicillins Allergy Unknown Verified 08/08/22 15:25 povidone-iodine Allergy Unknown Verified 08/08/22 15:25 [From Betadine] soap [From Betadine] Allergy Unknown Verified 08/08/22 15:25 sulfamethoxazole Allergy Rash/Hives Verified 08/08/22 15:25 [From Bactrim] trimethoprim [From Bactrim] Allergy Rash/Hives Verified 08/08/22 15:25 Review of Systems ROS Statement: Those systems with pertinent positive or pertinent negative responses have been documented in the HPI. Review of Systems: CONST: Denies fever EYES: Denies blurry vision ENT: Endorses right cheek pain, gumline pain. C/V: Denies Chest pain RESP: Denies shortness of breath GI: Denies abdominal pain : Denies dysuria SKIN: Denies rash. MSK: Denies joint pain. NEURO: Denies headache ROS Other: All systems not noted in ROS Statement are negative. Past Medical History Past Medical History: GERD/Reflux, Osteoarthritis (OA), Thyroid Disorder Additional Past Medical History / Comment(s): 09-03-15 LEUKOCYTOSIS,ABD PAIN, N/V,ARF,HEPATITIS. 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 History of Any Multi-Drug Resistant Organisms: None Reported Past Surgical History: Bowel Resection, Tonsillectomy Additional Past Surgical History / Comment(s): SEVERAL ileostomy SX, RECTUM REMOVED/AREA SUTURED/CLOSED, 2 NASL SX POLY REMOVED(BENIGN) AND DEVIATED SEPTUM REPAIRED. Additional Past Anesthesia/Blood Transfusion Reaction / Comment(s): WITH TONSIL SX WOKE EARLY DURING SX AND AFTER ANOTHER SX WHERE SHE HAD A SPINAL HAD SOME REACTION TO IT Past Psychological History: No Psychological Hx Reported Smoking Status: Current every day smoker Past Alcohol Use History: Rare Past Drug Use History: None Reported - Past Family History Father Family Medical History: Myocardial Infarction (SC) Additional Family Medical History / Comment(s): FATHER AHD SC AT AGE 51, HAD AIDC, DADS BROTHER AGE 50 FROM [place],AND ONE OF PTS COUSINS AGE 40 FROM [place] Mother Family Medical History: Cancer, Osteoarthritis (OA), Rheumatoid Arthritis (RA) Additional Family Medical History / Comment(s): BONE CANCER General Exam - General Exam Comments Initial Comments: General: Appears in mild distress secondary to pain. HEAD: Normal with no signs of head trauma. EYES: PERRLA, EOMI, conjunctiva normal, no discharge. Pupils are 3 mm and equal bilaterally. ENT: Hearing grossly intact. Full of the mouth is within normal limits. No swelling. Normal tongue motions. No tongue swelling. Posterior oropharynx is within normal limits. Patient's crown appears in intact. Patient does have some right upper gumline tenderness to palpation as well as right cheek tenderness to palpation with suspected induration palpated. No skin changes. No obvious abscess seen. Uvula is midline. No stridor. No lymph node swelling in the neck. No concern for Stephen angina. No mastoid tenderness to palpation. Bilateral tympanic membranes are within acceptable limits. Maybe trace amount of edema behind the right tympanic membrane. RESPIRATORY: Clear breath sounds bilaterally. No wheezes, rales, or rhonchi. C/V: Regular rate and rhythm. S1 and S2 auscultated, no edema, peripheral pulses 2+ and intact throughout ABD: Abd is soft, nontender, nondistended EXT: Normal range of motion, no obvious deformity SKIN: No rashes or lesions observed on exposed skin. NEURO: Alert and oriented 4. Limitations: no limitations Course Vital Signs 08/08/22 08/08/22 15:21 18:30 Temperature 97.9 F 98.0 F Pulse Rate 70 68 Respiratory 20 18 Rate Blood Pressure 113/81 116/76 O2 Sat by Pulse 96 97 Oximetry Medical Decision Making - Medical Decision Making Was pt. sent in by a medical professional or institution (, PA, PAINTING MACHINE OPERATOR, urgent care, hospital, or senior care...) When possible be specific @ -Yes, patient's dentist. Did you speak to anyone other than the patient for history (EMS, parent, family, police, friend...)? What history was obtained from this source @ -No Did you review nursing and triage notes (agree or disagree)? Why? @ -I reviewed and agree with nursing and triage notes Were old charts reviewed (outside hosp., previous admission, EMS record, old EKG, old radiological studies, urgent care reports/EKG's, senior care records)? Report findings @ -No old charts were reviewed Differential Diagnosis (chest pain, altered mental status, abdominal pain women, abdominal pain men, vaginal bleeding, weakness, fever, dyspnea, syncope, headache, dizziness, GI bleed, back pain, seizure, CVA, palpatations, mental health)? @ -Dental abscess, sinusitis, septal cellulitis, infection EKG interpreted by me (3pts min.). @ -None done X-rays interpreted by me (1pt min.). @ -None done CT interpreted by me (1pt min.). @ -CT of the facial bones revealed findings concerning for possible abscess as well as sinusitis. No other findings. U/S interpreted by me (1pt. min.). @ -None done What testing was considered but not performed or refused? (CT, X-rays, U/S, labs)? Why? @ -None What meds were considered but not given or refused? Why? @ -None Did you discuss the management of the patient with other professionals (professionals i.e. , PA, PAINTING MACHINE OPERATOR, lab, RT, psych nurse, clinical social work therapist, commercial litigation associate, teacher, ecological technical officer, family service caseworker)? Give summary @ -No Was smoking cessation discussed for >3mins.? @ -No Was critical care preformed (if so, how long)? @ -No Were there social determinants of health that impacted care today? How? (Homelessness, low income, unemployed, alcoholism, drug addiction, transportation, low edu. Level, literacy, decrease access to med. care, detention, rehab)? @ -No Was there de-escalation of care discussed even if they declined (Discuss DNR or withdrawal of care, Hospice)? DNR status @ -No What co-morbidities impacted this encounter? (DM, HTN, Smoking, COPD, CAD, Cancer, CVA, ARF, Chemo, Hep., AIDS, mental health diagnosis, sleep apnea, morbid obesity)? @ -None Was patient admitted / discharged? Hospital course, mention meds given and route, prescriptions, significant lab abnormalities, going to OR and other pertinent info. @ -Based on the patient's presentation and physical exam, I'm concerned for a dental infection for the patient. Cannot rule out other etiology at this time including possible sinusitis. Infection seems to be getting worse. Does not appear to have Stephen angina, however would like to obtain CT imaging to rule out possible septal or preseptal cellulitis on the right versus sinusitis. Patient was in agreement this plan. She is ALLERGIC to penicillins, as well as sulfa medications. She has already been on clindamycin. Therefore patient will be started and given a dose of levofloxacin here in the department as well as IV morphine and steroids. Patient will be given a 1 L fluid bolus We'll obtain basic labs as well as a CT of the facial bones. Patient was in agreement this plan. Vital signs within limits. There is no concern for Stephen angina at this time based on physical exam. We discussed this with the patient and she was in agreement with this plan. Patient has no neuro symptoms to suggest intracranial process at this time or intracranial extension of the infection. Patient's laboratory studies are remarkable for an elevated hemoglobin of 20.2 which is likely secondary to mild dehydration or possible lab air. Patient has had elevated focal the past. No elevated white blood cell count. Remainder of labs are unremarkable. Facial CT revealed right-sided sinusitis as well as an abscess in the right maxilla consistent with an abscess. I did the patient and discussed the workup with her. I do believe it is safer to be discharged home. She was in agreement this plan. I recommend she finish her dose of clindamycin at home and we will start her on levofloxacin. I wanted to follow up with her dentist next week. She can return if needed. She was in agreement this plan. She'll be placed on oral steroids as well for home. I will provide the patient with a prescription for levofloxacin, Decadron. I instructed the patient to follow up with their PCP in the next 1-3 days. I explained that the patient should return to the emergency department if they experience any worsening symptoms. Strict return precautions were discussed with the patient. The patient expressed understanding of these instructions. I answered all questions that the patient had. The patient was discharged home in good condition with their prescriptions and follow up information. Undiagnosed new problem with uncertain prognosis? @ -No Drug Therapy requiring intensive monitoring for toxicity (Heparin, Nitro, Insulin, Cardizem)? @ -No Were any procedures done? @ -No Diagnosis/symptom? @ -Dental infection Acute, or Chronic, or Acute on Chronic? @ -Acute Uncomplicated (without systemic symptoms) or Complicated (systemic symptoms)? @ -Complicated Side effects of treatment? @ -No Exacerbation, Progression, or Severe Exacerbation? @ -No Poses a threat to life or bodily function? How? (Chest pain, [place], [place], pneumonia, PE, COPD, DKA, ARF, appy, cholecystitis, CVA, Diverticulitis, Homicidal, Suicidal, threat to staff... and all critical care pts) @ -Yes, if it progresses can result in significant morbidity and mortality. Diagnosis/symptom? @ -Sinusitis, right Acute, or Chronic, or Acute on Chronic? @ -Acute Uncomplicated (without systemic symptoms) or Complicated (systemic symptoms)? @ -Uncomplicated Side effects of treatment? @ -none Exacerbation, Progression, or Severe Exacerbation] @ -no Poses a threat to life or bodily function? @ -If untreated, can result in significant morbidity and mortality. - Lab Data Result diagrams: 08/08/22 16:17 08/08/22 16:17 Lab Results 08/08/22 08/08/22 Range/Units 16:17 16:17 WBC 9.7 (3.8-10.6) k/uL RBC 6.28 H (3.80-5.40) m/uL Hgb 20.2 H* (11.4-16.0) gm/dL Hct 60.9 H* (34.0-46.0) % MCV 96.9 (80.0-100.0) fL MCH 32.1 (25.0-35.0) pg MCHC 33.2 (31.0-37.0) g/dL RDW 12.6 (11.5-15.5) % Plt Count 136 L (150-450) k/uL MPV 7.3 Neutrophils % 66 % Lymphocytes % 23 % Monocytes % 7 % Eosinophils % 2 % Basophils % 2 % Neutrophils # 6.4 (1.3-7.7) k/uL Lymphocytes # 2.2 (1.0-4.8) k/uL Monocytes # 0.6 (0-1.0) k/uL Eosinophils # 0.2 (0-0.7) k/uL Basophils # 0.1 (0-0.2) k/uL Sodium 138 (137-145) mmol/L Potassium 4.3 (3.5-5.1) mmol/L Chloride 107 (98-107) mmol/L Carbon Dioxide 23 (22-30) mmol/L Anion Gap 8 mmol/L BUN 16 (7-17) mg/dL Creatinine 0.74 (0.52-1.04) mg/dL Est GFR (CKD-EPI)AfAm >90 (>60 ml/min/1.73 sqM) Est GFR (CKD-EPI)NonAf 87 (>60 ml/min/1.73 sqM) Glucose 85 (74-99) mg/dL Calcium 9.8 (8.4-10.2) mg/dL Disposition Clinical Impression: Oral infection, Sinusitis, Dental abscess Disposition: HOME SELF-CARE Condition: Good Instructions (If sedation given, give patient instructions): Dental Abscess (ED) Prescriptions: dexAMETHasone [Decadron] 4 mg PO DAILY 3 Days #3 tablet Levofloxacin [Levaquin] 750 mg PO DAILY 7 Days #7 tab Is patient prescribed a controlled substance at d/c from ED?: No Referrals: Medina Booth MD [Primary Care Provider] - 1-2 days Time of Disposition: 17:45
[2022-08-08 16:50] LABS: Basophils # (A) 0.1 k/uL (0-0.2); Basophils % (A) 2 %; Eosinophils # (A) 0.2 k/uL (0-0.7); Eosinophils % (A) 2 %; Lymphocytes # (A) 2.2 k/uL (1.0-4.8); Lymphocytes % (A) 23 %; MCH 32.1 pg (25.0-35.0); MCHC 33.2 g/dL (31.0-37.0); MCV 96.9 fL (80.0-100.0); Mean Platelet Volume 7.3; Monocytes # (A) 0.6 k/uL (0-1.0); Monocytes % (A) 7 %; Neutrophils # (A) 6.4 k/uL (1.3-7.7); Neutrophils % (A) 66 %; Platelet Count 136 k/uL (150-450); RBC 6.28 m/uL (3.80-5.40); RDW 12.6 % (11.5-15.5); WBC 9.7 k/uL (3.8-10.6)
[2022-08-08 16:58] LABS: African American GFR (CKD) >90 (>60 ml/min/1.73 sqM); Anion Gap 8 mmol/L; Blood Urea Nitrogen 16 mg/dL (7-17); Calcium 9.8 mg/dL (8.4-10.2); Carbon Dioxide 23 mmol/L (22-30); Chloride 107 mmol/L (98-107); Glucose 85 mg/dL (74-99); Non-African American GFR(CKD) 87 (>60 ml/min/1.73 sqM); Sodium 138 mmol/L (137-145)
[2022-08-08 17:00] LABS: Potassium 4.3 mmol/L (3.5-5.1)
--- NOTE | 2022-08-08 17:33 | CT ---
EXAMINATION TYPE: CT facial bones w con DATE OF EXAM: 08/08/2022 COMPARISON: None HISTORY: right sided dental infection. eval for septal infx. recent root canal CT DLP: 435.7 mGycm Automated exposure control for dose reduction was used. CONTRAST: Performed with IV Contrast, patient injected with 90 mL of Isovue 300. Images obtained from the bottom of the mandible to the top of the frontal sinuses with the IV contras t. The mandibular ring is intact. Temporomandibular joints are intact. There is mucosal thickening right maxillary sinus. The nasal bone is intact. There is moderate mucosal thickening in the right maxilla ry sinus. Maxilla is intact. I see no focal bone destruction. There is no evidence of orbital blowout fracture. Orbital margins are intact. No retro-orbital mass. There is metal artifact from the dental work. There is subcutaneous edema anterior to the right maxilla. There is a fluid collection measuri ng approximately 2 x 1 cm anterior and adjacent to the right maxilla and consistent with an abscess. The parotid glands are symmetric. The submandibular salivary glands are symmetric. IMPRESSION: Right maxillary sinusitis. There is some subcutaneous edema and fluid adjacent to the anterior latera l right maxilla and consistent with abscess.
[2022-08-08 17:39] LABS: HCT 60.9 % (34.0-46.0); HGB 20.2 gm/dL (11.4-16.0)
[2022-08-08 18:40] VITALS: BP 116/76; PULSE 68; RESP 18; TEMP 98
== END 2022-08-08 18:30 | disposition home or self-care (01) ==
LOC: SUPCPDRO 15:09 → EC 15:09
DX: J32.9 Chronic sinusitis, unspecified (principal); J32.0 Chronic maxillary sinusitis; K04.7 Periapical abscess without sinus; M19.90 Unspecified osteoarthritis, unspecified site; E07.9 Disorder of thyroid, unspecified; F17.200 Nicotine dependence, unspecified, uncomplicated; Z79.890 Hormone replacement therapy; Z79.1 Long term (current) use of non-steroidal anti-inflammatories (NSAID); Z88.0 Allergy status to penicillin; Z88.2 Allergy status to sulfonamides; Z88.8 Allergy status to other drugs, medicaments and biological substances; Z91.041 Radiographic dye allergy status
CPT/HCPCS: 99283; 96365; 96366; 96375 ×2; 36415; 80048; 85025; 70487; J2270; J1100; J1956; Q9967

== ENCOUNTER → 2023-01-01 | Outpatient (CLI) | payer MEDICARE ==
[2023-01-01 23:33] LABS: Basophils # (A) 0.06 X 10*3/uL (0.00-0.10); Basophils % (A) 0.5 %; Eosinophils # (A) 0.23 X 10*3/uL (0.04-0.35); HCT 43.3 % (37.2-46.3); HGB 13.6 d/dL (12.0-15.0); Lymphocytes # (A) 2.68 X 10*3/uL (0.90-5.00); Lymphocytes % (A) 23.5 %; MCH 30.9 pg (27.0-32.0); MCHC 31.4 d/dL (32.0-37.0); MCV 98.4 FL (80.0-97.0); Mean Platelet Volume 9.7 FL (9.5-12.2); Monocytes # (A) 0.59 X 10*3/uL (0.20-1.00); Monocytes % (A) 5.2 %; NRBC Per 100 WBC 0 X 10*3/uL (0.00-0.01); Neutrophils # (A) 7.82 X 10*3/uL (1.80-7.70); Neutrophils % (A) 68.4 %; Platelet Count 310 X 10*3/uL (140-440); RDW 12.9 % (11.5-14.5); WBC 11.42 X 10*3/uL (4.50-10.00)
[2023-01-02 02:48] LABS: ALT 46 U/L (8-44); AST 36 U/L (13-35); Albumin 4.5 d/dL (3.8-4.9); Albumin/Globulin Ratio 1.73 Ratio (1.60-3.17); Alkaline Phosphatase 153 U/L (41-126); BUN/Creat Ratio 14.67 Ratio (12.00-20.00); Blood Urea Nitrogen 13.2 mg/dL (9.0-27.0); Calcium 10.7 mg/dL (8.7-10.3); Carbon Dioxide 22.5 mmol/L (21.6-31.8); Chloride 101 mmol/L (96-109); Globulin 2.6 d/dL (1.6-3.3); Glucose 64 mg/dL (70-110); Potassium 4.1 mmol/L (3.5-5.5); Sodium 140 mmol/L (135-145); Total Bilirubin 0.2 mg/dL (0.3-1.2); Total Protein 7.1 d/dL (6.2-8.2)
[2023-01-02 04:24] LABS: Prealbumin 23.9 mg/dL (18.0-42.0)
== END | disposition home or self-care (01) ==
LOC: LABWHC1 12:47
PROVIDERS: ATTEND Internal Medicine Infectious Disease
DX: K50.918 Crohn's disease, unspecified, with other complication (principal); K94.00 Colostomy complication, unspecified; R63.4 Abnormal weight loss
CPT/HCPCS: 36415; 80053; 84134; 85025

== ENCOUNTER → 2023-03-09 | Outpatient (CLI) | payer MEDICARE ==
[2023-03-09 13:30] VITALS: TEMP 98.2
[2023-03-09 13:39] VITALS: BP 179/75; PULSE 65; RESP 6
== END ==
LOC: PROCWHC3 12:29
PROVIDERS: ATTEND Internal Medicine
DX: M81.0 Age-related osteoporosis without current pathological fracture (principal)
CPT/HCPCS: 96372; J0897

== ENCOUNTER → 2023-05-18 | Outpatient (CLI) | payer MEDICARE ==
--- NOTE | 2023-05-18 16:08 | BD ---
EXAMINATION TYPE: Axial Bone Density DATE OF EXAM: 05/18/2023 CLINICAL HISTORY: 67 years old Female. ICD-10 CODE: M81.0 Osteoporosis Height: 61" Weight: 105.3lbs FRAX RISK QUESTIONS: Alcohol (3 or more units per day): No Family History (Parent hip fracture): No Glucocorticoids (More than 3mos): Hx of steroids many years ago, for Chron' s disease, recently took for oral surgery (Ex: prednisone, prednisolone, methylprednisolone, dexamethasone, and hydrocortisone). History of Fracture in Adulthood: Yes Secondary Osteoporosis: 1. Type 1 Diabetes: No 2. Hyperthyroidism: No 3. Menopause before 45: No 4. Malnutrition: No 5. 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 Family History of Osteoporosis: Yes, Mother Active: Yes Diet low in dairy products/other sources of calcium: Yes Postmenopausal woman: Yes Lost more than 2 inches in height since high school: No Frequent falls: No Poor Health: No Hyperparathyroidism: No Adrenal Insufficiency: No MEDICATIONS: Prednisone or other steroids: Yes, years ago for Chron' s treatment Thyroid Medications: Yes Which medication: Synthroid How Lon+ years Osteoporosis Medications: Yes Which medication: Prolia How Lon years Additional Medications: Synthroid, Prolia, Calcium and Vitamin D, Blood pressure meds, Vitamin E, Vit rivera B12, anti-depressant (Celexa), Pepcid for acid reflux Additional History: None EXAM MEASUREMENTS: Bone mineral densitometry was performed using the [employer] System. Bone mineral density as measured about the Lumbar spine is: ----- L1-L4(G/cm2): 0.872 T Score Values are as follows: ----- L1: -2.9 ----- L2: -3.0 ----- L3: -2.5 ----- L4: -2.1 ----- L1-L4: -2.6 Z Score Values are as follows: ----- L1: -0.8 ----- L2: -0.8 ----- L3: -0.3 ----- L4: 0.0 ----- L1-L4: -0.4 Bone mineral density has: increased 5.8% since study of: 09/10/2020 Bone mineral density about the R hip (g/cm2): 0.741 Bone mineral density about the L hip (g/cm2): 0.665 T Score values are as follows: -----R Neck: -1.9 -----L Neck: -2.0 -----R Total: -2.1 -----L Total: -2.7 Z Score values are as follows: -----R Neck: -0.1 -----L Neck: -0.2 -----R Total: -0.5 -----L Total: -1.1 Bone mineral density has: increased 0.7% since study of: 09/10/2020 FRAX%s: The graph provided illustrates a 24.5% chance for a major osteoporotic fx and a 5.0% chance f or the hips probability for fx in 10 years time. IMPRESSION: Osteoporosis (T Score less than -2.5). There is increased fracture risk and therapy is usually indicated based on age. Re-Screen 1-2 years. NOTE: T-SCORE=SD OF THE YOUNG ADULT MEAN.
--- NOTE | 2023-05-19 12:01 | MM ---
Reason for Exam: Screening (asymptomatic). Last screening mammogram was performed 12 month(s) ago. Patient History: Menarche at age 17. Patient has no children. Postmenopausal. Risk Values: Senait 5 year model risk: 1.7%. NCI Lifetime model risk: 6.3%. Prior Study Comparison: 07/01/2019 Bilateral Screening Mammogram, [facility]. 09/10/2020 Bilateral Screening Mammogram, [facility]. 05/16/2022 Bilateral MG 3D screening mammo w/cad, [facility]. Tissue Density: The breast tissue is heterogeneously dense. This may lower the sensitivity of mammography. Findings: Analyzed By CAD. There is no suspicious group of microcalcifications or new suspicious mass in either breast. Overall Assessment: Benign, BI-RAD 2 Management: Screening Mammogram of both breasts in 1 year. . Patient should continue monthly self-breast exams. A clinical breast exam by your physician is recommended on an annual basis. This exam should not preclude additional follow-up of suspicious palpable abnormalities. Note on Senait scores and lifetime risk: 1. A Senait score greater than 3% is considered moderate risk. If this is the case, consider specialist referral to assess eligibility for a risk reducing agent. 2. If overall lifetime risk for the development of breast cancer is 20% or higher, the patient may qualify for future screening with alternating mammogram and breast MRI. Electronically signed and approved by: Lukasz Snider M.D. Radiologis
== END | disposition home or self-care (01) ==
LOC: RADMAMWWP 14:01
PROVIDERS: ATTEND Obstetrics & Gynecology
DX: Z12.31 Encounter for screening mammogram for malignant neoplasm of breast (principal); M81.0 Age-related osteoporosis without current pathological fracture; M85.89 Other specified disorders of bone density and structure, multiple sites; Z78.0 Asymptomatic menopausal state
CPT/HCPCS: 77063; 77067; 77080

== ENCOUNTER → 2025-02-17 | Outpatient (CLI) | payer MEDICARE ==
--- NOTE | 2025-02-18 02:34 | CT ---
EXAMINATION TYPE: CT abdomen pelvis wo con DATE OF EXAM: 02/17/2025 10:18 AM COMPARISON: None. CLINICAL INDICATION: Female, 69 years old with history of R79.89 ABNORMAL FINDINGS OF BLOOD CHEMISTRY , hip pain and high liver enzyme. 1 bottle of redicat used due to pt having an ileostomy and stating the contrast went directly to her bag TECHNIQUE: Axial images were obtained from above the diaphragm to the pubic rami in the axial plane a t 5 mm thick sections. Reconstructed images are reviewed on the computer in the coronal plane. CONTRAST: mL of . Study performed with Oral Contrast DLP: 216 mGycm, Automated exposure control for dose reduction was used. FINDINGS: Limited CT sections are obtained the lung bases. The lung bases are clear. CT ABDOMEN: Liver: Normal Spleen: Normal Pancreas: Normal Adrenal glands: The adrenal glands are normal. Gallbladder: Surgically absent Kidneys: No masses are evident. No hydronephrosis is present. There is a 2.3 cm cyst on the lateral left kidney. No renal stones evident. Aorta: Vascular calcification is within the aorta. Inferior vena cava: Normal. CT PELVIS: Loops of bowel within the abdomen and pelvis are normal. Scattered diverticuli within sigmoid colon. Studies without oral contrast limiting the evaluation. Ostomies in the left lower quadrant. Appendix: Not identified Urinary bladder: Not identified Genitourinary structures: Uterus and ovaries are not identified Osseous structures: No suspicious lytic or sclerotic lesions. IMPRESSION: 1. Postsurgical changes within the lower pelvis. Correlate with the history. 2. Diverticulosis without acute diverticulitis. 3. Left renal cyst [facility], Workstation: [facility], 02/18/2025 2:32 AM
== END | disposition home or self-care (01) ==
LOC: RADCTMAIN 09:56
PROVIDERS: ATTEND Internal Medicine
DX: N28.1 Cyst of kidney, acquired (principal); K57.30 Diverticulosis of large intestine without perforation or abscess without bleeding; R79.89 Other specified abnormal findings of blood chemistry; Z98.890 Other specified postprocedural states
CPT/HCPCS: 74176